=== PATIENT | female | born 1980 | race African-American/Black ===

== ENCOUNTER 2016-03-14 15:09 | Emergency (ER) | payer OTHER ==
--- NOTE | 2016-03-14 15:26 | ER Document Report ---
ED Respiratory Problem - General Mode of Arrival: Medic Information source: Patient, Emergency Med Personnel TRAVEL OUTSIDE OF THE [place] IN LAST 30 DAYS: No - HPI Patient complains to provider of: Short of breath Onset: Just prior to arrival Context: Hx COPD At home treatment: CPAP Associated symptoms: Other - see above <BRANDIN MIX - Last Filed: 03/14/16 16:47> <SRAVAN ESPINOSA - Last Filed: 03/14/16 19:55> - General Stated Complaint: BREATHING PROBLEMS Notes: 35 year old female with history of COPD, dyslipidemia, and hypertension presents to the ED via EMS after experiencing respiratory distress just prior to arrival. Patient was on a BiPAP machine upon examination and states that it is helping her breath better. EMS reports that they did not give the patient any breathing treatments because of her left arm swelling and bilateral pitting edema. EMS reports that there were no lung sounds bilaterally upon examination. Patient reports that she is supposed to be on a CPAP machine at night, but states that she doesn't use it because it is too big. Patient is currently on [place], Albuterol, Proair, Duoneb, Lisinopril, and Pravastatin. (BRANDIN MIX) - Related Data Allergies/Adverse Reactions: iodine [Iodine] Allergy (Verified 02/27/14 17:53) Shellfish * [Shellfish] Allergy (Verified 02/27/14 17:53) Past Medical History - General Information source: Patient - Social History Smoking Status: Unknown if Ever Smoked Family History: Reviewed & Not Pertinent - Past Medical History Cardiac Medical History: Reports: Hx Hypercholesterolemia, Hx Hypertension Pulmonary Medical History: Reports: Hx COPD Neurological Medical History: Reports: Hx Migraine Endocrine Medical History: Reports: Hx Diabetes Mellitus Type 2 Psychiatric Medical History: Reports: Hx Bipolar Disorder - Immunizations Hx Diphtheria, Pertussis, Tetanus Vaccination: Yes <BRANDIN MIX - Last Filed: 03/14/16 16:47> Review of Systems - Review of Systems Constitutional: No symptoms reported EENT: No symptoms reported Cardiovascular: No symptoms reported Respiratory: See HPI, Short of breath Gastrointestinal: No symptoms reported Genitourinary: No symptoms reported Female Genitourinary: No symptoms reported Musculoskeletal: No symptoms reported Skin: No symptoms reported Hematologic/Lymphatic: No symptoms reported Neurological/Psychological: No symptoms reported <BRANDIN MIX - Last Filed: 03/14/16 16:47> Physical Exam - General General appearance: Alert In distress: None - HEENT Head: Normocephalic, Atraumatic Eyes: Normal Extraocular movements intact: Yes Pupils: PERRL - Respiratory Respiratory status: No respiratory distress, Other - Patient is 100% on BiPAP Breath sounds: Normal. No: Wheezing - Cardiovascular Rhythm: Regular Heart sounds: Normal auscultation - Abdominal Inspection: Morbidly Obese. No: Normal - Back Back: Normal - Extremities General upper extremity: Normal inspection, Normal ROM. No: Edema General lower extremity: Normal inspection, Normal ROM. No: Edema - Neurological Neuro grossly intact: Yes - Psychological Associated symptoms: Normal affect, Normal mood - Skin Skin Temperature: Warm Skin Moisture: Dry Skin Color: Normal <BRANDIN MIX - Last Filed: 03/14/16 16:47> Course - Laboratory Result Diagrams: 03/14/16 15:30 03/14/16 15:30 <BRANDIN MIX - Last Filed: 03/14/16 16:47> - Laboratory Result Diagrams: 03/14/16 15:30 03/14/16 15:30 - Diagnostic Test Radiology reviewed: Image reviewed, Reports reviewed - Stable cardiomegaly, no infiltrates, no pulmonary vascular congestion or heart failure. - EKG Interpretation by Me EKG shows normal: Sinus rhythm, [place], Intervals, QRS Complexes, ST-T Waves Rate: Normal - 77 Rhythm: NSR <SRAVAN ESPINOSA - Last Filed: 03/14/16 19:55> - Re-evaluation Re-evalutation: 03/14/16 19:51 Patient was taken off of BiPAP after a mostly negative workup. She was allowed to walk up and down the hallway and maintain an oxygen saturation of 94% during the process. She'll be discharged home to continue her regular medications, follow up with her doctor to get a better fitting C Pap mask that she will use. (SRAVAN ESPINOSA) - Vital Signs Vital signs: Temp Pulse Resp BP Pulse Ox 97.9 F 85 27 H 148/92 H 100 03/14/16 15:10 03/14/16 15:10 03/14/16 15:40 03/14/16 16:21 03/14/16 16:21 (SRAVAN ESPINOSA) - Laboratory Laboratory results interpreted by me: 03/14/16 03/14/16 03/14/16 15:30 15:30 15:30 RBC 5.38 H Hgb 8.5 L Hct 29.6 L MCV 55 L MCH 15.8 L MCHC 28.7 L RDW 20.2 H Plt Count 629 H Hemoglobin A1c % 7.8 H Creatine Kinase 465 H Total Protein 8.9 H Urine Protein 03/14/16 17:55 RBC Hgb Hct MCV MCH MCHC RDW Plt Count Hemoglobin A1c % Creatine Kinase Total Protein Urine Protein 100 H (SRAVAN ESPINOSA) Discharge <BRANDIN MIX - Last Filed: 03/14/16 16:47> <SRAVAN ESPINOSA - Last Filed: 03/14/16 19:55> - Discharge Clinical Impression: Shortness of breath COPD (chronic obstructive pulmonary disease) Qualifiers: COPD type: unspecified COPD Qualified Code(s): J44.9 - Chronic obstructive pulmonary disease, unspecified Condition: Stable Disposition: HOME, SELF-CARE Additional Instructions: Your chest x-ray, EKG, and lab work were all unremarkable. When the BiPAP was removed and you were allowed to walk the hallways, your oxygen saturations stayed in the 94% range. Continue your regular medications when you get home. Follow-up with your doctor to get a better fitting C Pap mask so that you can use it as prescribed. RETURN TO THE EMERGENCY ROOM IF ANY NEW OR WORSENING SYMPTOMS. Scribe Attestation: 03/14/16 19:55 I personally performed the services described in the documentation, reviewed and edited the documentation which was dictated to the scribe in my presence, and it accurately records my words and actions. (SRAVAN ESPINOSA) Scribe Documentation - Scribe Written by Moiibe:: Tonny Martinez, 03/14/2016 16:49 acting as scribe for :: Reena <BRANDIN MIX - Last Filed: 03/14/16 16:47>
[2016-03-14] MEDS ORDERED: PREDNISONE 20 MG TABLET PO ONE (15:30)
[2016-03-14 15:52] LABS: HEMATOCRIT 29.6 % (36.0-47.0); HEMOGLOBIN 8.5 g/dL (12.0-15.5); MEAN CORPUSCULAR HEMOGLOBIN 15.8 pg (27.0-33.4); MEAN CORPUSCULAR HGB CONC 28.7 g/dL (32.0-36.0); RED BLOOD COUNT 5.38 10^6/uL (3.72-5.28); RED CELL DISTRIBUTION WIDTH 20.2 % (11.5-14.0); WHITE BLOOD COUNT 10.5 10^3/uL (4.0-10.5)
[2016-03-14 16:04] LABS: ALANINE AMINOTRANSFERASE 36 U/L (9-52); ALBUMIN 4.2 g/dL (3.5-5.0); ALKALINE PHOSPHATASE 106 U/L (38-126); ANION GAP 12 (5-19); ASPARTATE AMINO TRANSFERASE 31 U/L (14-36); BILIRUBIN,TOTAL 0.5 mg/dL (0.2-1.3); BLOOD UREA NITROGEN 14 mg/dL (7-20); CARBON DIOXIDE 29 mmol/L (22-30); CHLORIDE 102 mmol/L (98-107); CREATINE KINASE 465 U/L (30-135); CREATININE RESULT 0.85 mg/dL (0.52-1.25); GLUCOSE 100 mg/dL (75-110); POTASSIUM 4.2 mmol/L (3.6-5.0); SODIUM 143.1 mmol/L (137-145); TOTAL PROTEIN 8.9 g/dL (6.3-8.2)
[2016-03-14 16:06] LABS: HGB HCT DIFFERENCE -4.1
[2016-03-14 16:11] LABS: BASOPHILS % (MANUAL) 1 % (0-2); EOSINOPHILS % (MANUAL) 3 % (0-6); LYMPHOCYTES % (MANUAL) 41 % (13-45); TOTAL CELLS COUNTED 100
[2016-03-14 16:12] LABS: ANISOCYTOSIS 2+; HYPOCHROMASIA 3+; MICROCYTOSIS 3+; OVALOCYTES SLIGHT; POIKILOCYTOSIS SLIGHT; ROULEAUX SLIGHT; TARGET CELLS SLIGHT
[2016-03-14] MEDS ORDERED: IPRATROPIUM/ALBUTEROL 0.5-2.5 MG/3 ML AMPUL NEB ONE (16:12)
[2016-03-14 16:13] LABS: MEAN CORPUSCULAR VOLUME 55 fl (80-97)
[2016-03-14 16:18] LABS: CREATINE KINASE MB 1.67 ng/mL (<4.55); TROPONIN I 0.014 ng/mL
[2016-03-14] MEDS ORDERED: HYDROCODONE/ACETAMINOPHEN 5-325 MG TABLET PO ONE (17:48)
[2016-03-14 18:25] LABS: APPEARANCE,URINE SLIGHTLY-CLOUDY; BILIRUBIN,URINE NEGATIVE (NEGATIVE); GLUCOSE, URINE NEGATIVE (NEGATIVE); KETONES,URINE NEGATIVE (NEGATIVE); LEUKOCYTE ESTERASE,URINE NEGATIVE (NEGATIVE); NITRITE,URINE NEGATIVE (NEGATIVE); PROTEIN,URINE 100 mg/dL (NEGATIVE); URINE SPECIFIC GRAVITY 1.021; UROBILINOGEN,URINE NEGATIVE mg/dL (<2.0)
[2016-03-14 19:57] VITALS: BP 161/90
--- NOTE | 2016-03-14 21:13 | EKG REPORT ---
SEVERITY:- NORMAL ECG - SINUS RHYTHM : Confirmed by: Yan Jacob MD 14-Mar-2016 21:13:09
== END 2016-03-14 20:03 | disposition home or self-care (01) ==
LOC: ER 15:09
DX: J44.9 Chronic obstructive pulmonary disease, unspecified (principal); I10 Essential (primary) hypertension; R60.9 Edema, unspecified; M79.89 Other specified soft tissue disorders; F31.9 Bipolar disorder, unspecified; E78.00 Pure hypercholesterolemia, unspecified; E11.9 Type 2 diabetes mellitus without complications; Z79.899 Other long term (current) drug therapy; Z91.013 Allergy to seafood; R06.02 Shortness of breath; I51.7 Cardiomegaly
CPT/HCPCS: 93005; 94640; 99285; 36415; 87040; 82553; 82550; 83735; 84703; 85025; 80053; 81001; 84484; 83036; 85379; 71010; 93010; 94660; J7512; J7620

== ENCOUNTER 2016-05-20 22:23 | Emergency (ER) | payer OTHER ==
[2016-05-21] MEDS ORDERED: METHYLPREDNISOLONE INJ 125 MG/2 ML SDV IV ONE (00:29)
[2016-05-21] MEDS ORDERED: IPRATROPIUM/ALBUTEROL 0.5-2.5 MG/3 ML AMPUL NEB ONE (00:29)
[2016-05-21] MEDS ORDERED: MAGNESIUM SULFATE/D5W 1 GM/100 ML RTUPB IV ONE ×2 (00:29)
[2016-05-21] MEDS ORDERED: ALBUTEROL SULFATE 0.083% NEB 2.5 MG/3 ML AMPUL NEB ONE (00:29)
--- NOTE | 2016-05-21 00:32 | ER Document Report ---
ED Respiratory Problem - General Chief Complaint: Breathing Difficulty Stated Complaint: BREATHING DIFFICULTY Time seen by provider: 00:30 Mode of Arrival: Ambulatory Information source: Patient TRAVEL OUTSIDE OF THE [place] IN LAST 30 DAYS: No - HPI Patient complains to provider of: COPD, Cough, Short of breath Onset: This afternoon Duration: Worse/persistent Quality of pain: No pain Context: Hx COPD Chest pain/discomfort: Tightness Cough: Productive Sputum amount: Small Sputum color: Green, Yellow Sputum consistency: Mucoid At home treatment: Bronchodilators, Oral steroids Associated symptoms: Congestion, Cough, Difficulty breathing, Extertional dyspnea, Short of breath, Wheezing Similar symptoms previously: Yes Recently seen / treated by doctor: Yes Notes: Patient is a 36-year-old female presenting to the emergency room complaining of going on throughout the day today, she reports a cough productive of yellowish and greenish phlegm, denies fever, patient reports a history of COPD, she was seen at urgent care last week and diagnosed with influenza, was placed on a Z- Ashutosh and Tamiflu as well as oral steroids, which she completed treatment, she is a former smoker, reports multiple sick contacts at work recently, denies chest pain, no calf pain or tenderness - Related Data Allergies/Adverse Reactions: iodine [Iodine] Allergy (Verified 02/27/14 17:53) Shellfish * [Shellfish] Allergy (Verified 02/27/14 17:53) Past Medical History - General Information source: Patient - Social History Smoking Status: Former Smoker Chew tobacco use (# tins/day): No Frequency of alcohol use: None Drug Abuse: None Family History: Reviewed & Not Pertinent Patient has suicidal ideation: No Patient has homicidal ideation: No - Past Medical History Cardiac Medical History: Reports: Hx Hypercholesterolemia, Hx Hypertension Pulmonary Medical History: Reports: Hx Asthma, Hx COPD Neurological Medical History: Reports: Hx Migraine Endocrine Medical History: Reports: Hx Diabetes Mellitus Type 2 Renal/ Medical History: Denies: Hx Peritoneal Dialysis Psychiatric Medical History: Reports: Hx Bipolar Disorder - Immunizations Hx Diphtheria, Pertussis, Tetanus Vaccination: Yes Review of Systems - Review of Systems Constitutional: No symptoms reported EENT: No symptoms reported Cardiovascular: No symptoms reported Respiratory: See HPI Gastrointestinal: No symptoms reported Genitourinary: No symptoms reported Female Genitourinary: No symptoms reported Musculoskeletal: No symptoms reported Skin: No symptoms reported Hematologic/Lymphatic: No symptoms reported Neurological/Psychological: No symptoms reported -: Yes All other systems reviewed and negative Physical Exam - Vital signs Vitals: Temp Pulse Resp BP Pulse Ox 98.0 F 110 H 28 H 180/87 H 96 05/20/16 22:30 05/20/16 22:30 05/20/16 22:30 05/20/16 22:30 05/20/16 22:30 Interpretation: Hypertensive, Tachycardic, Tachypneic - General General appearance: Alert In distress: Mild - HEENT Head: Normocephalic, Atraumatic Eyes: Normal Conjunctiva: Normal Extraocular movements intact: Yes Eyelashes: Normal Pupils: PERRL - Respiratory Respiratory status: Tachypnea Chest status: Nontender Breath sounds: Decreased air movement, Nonproductive cough, Wheezing Chest palpation: Normal - Cardiovascular Rhythm: Regular, Tachycardia Heart sounds: Normal auscultation Murmur: No - Abdominal Inspection: Morbidly Obese Distension: No distension Bowel sounds: Normal Tenderness: Nontender Organomegaly: No organomegaly - Back Back: Normal, Nontender - Extremities General upper extremity: Normal inspection, Nontender, Normal color, Normal ROM , Normal temperature General lower extremity: Normal inspection, Nontender, Normal color, Normal ROM , Normal temperature, Normal weight bearing. No: Jadiel's sign - Neurological Neuro grossly intact: Yes Cognition: Normal Orientation: AAOx4 [place] Coma Scale Eye Opening: Spontaneous [place] Coma Scale Verbal: Oriented [place] Coma Scale Motor: Obeys Commands [place]ila Coma Scale Total: 15 Speech: Normal Motor strength normal: LUE, RUE, LLE, RLE Sensory: Normal - Psychological Associated symptoms: Normal affect, Normal mood - Skin Skin Temperature: Warm Skin Moisture: Dry Skin Color: Normal Course - Re-evaluation Re-evalutation: 05/21/16 02:41 Patient reports feeling much better after breathing treatments, site Medrol and IV magnesium, lab and imaging findings were discussed with her at bedside including her anemia, patient will be discharged with prescriptions for nebulizer treatments and inhaler, as well as steroids for a few days, she was advised to follow-up with her primary care provider or return if symptoms worsen , patient acknowledges understanding of plan - Vital Signs Vital signs: Temp Pulse Resp BP Pulse Ox 98.0 F 110 H 17 122/95 H 97 05/20/16 22:30 05/20/16 22:30 05/21/16 02:33 05/21/16 02:33 05/21/16 02:33 - Laboratory Result Diagrams: 05/21/16 01:20 05/21/16 01:20 Laboratory results interpreted by me: 05/21/16 05/21/16 01:20 01:20 Hgb 8.1 L Hct 28.0 L MCV 55 L MCH 15.7 L MCHC 28.8 L RDW 21.1 H Plt Count 524 H Glucose 201 H - Diagnostic Test Radiology reviewed: Image reviewed, Reports reviewed - EKG Interpretation by Me EKG shows normal: Sinus rhythm Rate: Normal Rhythm: NSR When compared to previous EKG there are: No significant change Discharge - Discharge Clinical Impression: Viral upper respiratory illness, COPD exacerbation Anemia Qualifiers: Anemia type: unspecified type Qualified Code(s): D64.9 - Anemia, unspecified Condition: Stable Disposition: HOME, SELF-CARE Instructions: Upper Respiratory Illness ([facility]), Viral Syndrome ([facility]), Chronic Obstructive Lung Disease ([facility]) Additional Instructions: Follow up with your primary care provider in one to 2 days. Return to the emergency room immediately if symptoms worsen or any additional concerns. Prescriptions: Albuterol Sulfate [Proair HFA Inhalation Aerosol 8.5 gm MDI] 1 puff IH Q4 PRN # 1 mdi PRN Reason: Albuterol Sulfate [Albuterol Sulfate 2.5mg/3 mL] 1 vial IH Q4 PRN #30 vial PRN Reason: Prednisone 40 mg PO DAILY #8 tablet
[2016-05-21 01:48] LABS: ALANINE AMINOTRANSFERASE 27 U/L (9-52); ALBUMIN 3.9 g/dL (3.5-5.0); ALKALINE PHOSPHATASE 107 U/L (38-126); ANION GAP 13 (5-19); ASPARTATE AMINO TRANSFERASE 21 U/L (14-36); BILIRUBIN,TOTAL 0.4 mg/dL (0.2-1.3); BLOOD UREA NITROGEN 17 mg/dL (7-20); CALCIUM 9.5 mg/dL (8.4-10.2); CARBON DIOXIDE 25 mmol/L (22-30); CHLORIDE 101 mmol/L (98-107); CREATININE RESULT 0.74 mg/dL (0.52-1.25); GLUCOSE 201 mg/dL (75-110); POTASSIUM 4.8 mmol/L (3.6-5.0)
[2016-05-21 02:10] LABS: ABSOLUTE MONOCYTES (AUTO) 0.5 10^3/uL (0.1-1.4); BASOPHILS % (AUTO) 0.4 % (0-2); EOSINOPHILS % (AUTO) 0.3 % (0-6); HEMOGLOBIN 8.1 g/dL (12.0-15.5); HGB HCT DIFFERENCE -3.7; LYMPHOCYTES % (AUTO) 20.9 % (13-45); MEAN CORPUSCULAR HEMOGLOBIN 15.7 pg (27.0-33.4); MEAN CORPUSCULAR HGB CONC 28.8 g/dL (32.0-36.0); RED BLOOD COUNT 5.12 10^6/uL (3.72-5.28); RED CELL DISTRIBUTION WIDTH 21.1 % (11.5-14.0); SEGMENTED NEUTROPHILS % (AUTO) 73.4 % (42-78); WHITE BLOOD COUNT 9.5 10^3/uL (4.0-10.5)
[2016-05-21 02:16] LABS: MEAN CORPUSCULAR VOLUME 55 fl (80-97)
[2016-05-21 02:24] LABS: ANISOCYTOSIS 3+; HYPOCHROMASIA 3+; MICROCYTOSIS 3+; OVALOCYTES 1+; POIKILOCYTOSIS 2+; POLYCHROMASIA 1+; TARGET CELLS 1+; TEAR DROP CELLS SLIGHT
[2016-05-21 04:30] VITALS: BP 124/88
[2016-05-21 09:25] LABS: PATH REVIEW PATHOLOGIST REVIEWED
--- NOTE | 2016-05-21 19:33 | EKG REPORT ---
SEVERITY:- BORDERLINE ECG - SINUS RHYTHM BORDERLINE T ABNORMALITIES, ANT-LAT LEADS : Confirmed by: Katelyn Lozano 21-May-2016 19:32:36
== END 2016-05-21 04:20 | disposition home or self-care (01) ==
LOC: ER 22:23
DX: J44.1 Chronic obstructive pulmonary disease with (acute) exacerbation (principal); J06.9 Acute upper respiratory infection, unspecified; B97.89 Other viral agents as the cause of diseases classified elsewhere; D64.9 Anemia, unspecified; J45.909 Unspecified asthma, uncomplicated; R05 Cough; R06.02 Shortness of breath; R00.0 Tachycardia, unspecified; R07.89 Other chest pain; I10 Essential (primary) hypertension; E11.9 Type 2 diabetes mellitus without complications; Z87.891 Personal history of nicotine dependence; Z91.013 Allergy to seafood
CPT/HCPCS: 93005; 94640; 99285; 96375; 96365; 96366; 36415; 84703; 85025; 80053; 71020; 93010; J2930; J3475; J7620

== ENCOUNTER 2016-06-29 13:30 | Emergency (ER) | payer OTHER ==
--- NOTE | 2016-06-29 13:53 | ER Document Report ---
ED Medical Screen (RME) - General Chief Complaint: Shortness Of Breath Stated Complaint: DIZZINESS Time seen by provider: 13:51 Mode of Arrival: Wheelchair Information source: Patient TRAVEL OUTSIDE OF THE [place] IN LAST 30 DAYS: No - HPI Patient complains to provider of: shortness of breath, generalized fatigue and weakness,pale Onset: Last week Onset/Duration: Gradual, Persistent, Worse Quality of pain: No pain Associated Symptoms: Dizzy/lightheaded, Shortness of breath, Weakness Exacerbated by: Denies Relieved by: Denies Similar symptoms previously: Yes Recently seen / treated by doctor: Yes Notes: 06/29/16 13:52 Patient is a 36-year-old female who presents to the emergency room complaining of shortness of breath with generalized weakness and fatigue, she is a history of COPD as well as iron deficiency anemia which has required blood transfusions in the past, she reports that she had outpatient labs performed approximately one week ago and was told that her hemoglobin is 7.7 patient denies any active bleeding - Related Data Allergies/Adverse Reactions: iodine [Iodine] Allergy (Verified 06/29/16 13:50) Shellfish * [Shellfish] Allergy (Verified 06/29/16 13:50) Past Medical History - Social History Family history: CAD, Malignancy - breast, lung, Other - emphysema - Past Medical History Cardiac Medical History: Reports: Hx Hypercholesterolemia, Hx Hypertension Pulmonary Medical History: Reports: Hx Asthma, Hx COPD Neurological Medical History: Reports: Hx Migraine Endocrine Medical History: Reports: Hx Diabetes Mellitus Type 2 Renal/ Medical History: Denies: Hx Peritoneal Dialysis Psychiatric Medical History: Reports: Hx Bipolar Disorder - Immunizations Hx Diphtheria, Pertussis, Tetanus Vaccination: Yes Physical Exam - Vital signs Vitals: Temp Pulse Resp BP Pulse Ox 98.6 F 94 16 132/79 H 97 06/29/16 13:39 06/29/16 13:39 06/29/16 13:39 06/29/16 13:39 06/29/16 13:39 Course - Vital Signs Vital signs: Temp Pulse Resp BP Pulse Ox 98.6 F 94 16 132/79 H 97 06/29/16 13:39 06/29/16 13:39 06/29/16 13:39 06/29/16 13:39 06/29/16 13:39
[2016-06-29 14:25] LABS: ABSOLUTE BASOPHILS # (AUTO) 0.1 10^3/uL (0.0-0.2); ABSOLUTE EOSINOPHILS # (AUTO) 0.2 10^3/uL (0.0-0.6); ABSOLUTE LYMPHOCYTES (AUTO) 4.5 10^3/uL (0.5-4.7); ABSOLUTE MONOCYTES (AUTO) 0.8 10^3/uL (0.1-1.4); ABSOLUTE NEUT (AUTO) 5.8 10^3/uL (1.7-8.2); BASOPHILS % (AUTO) 0.5 % (0-2); EOSINOPHILS % (AUTO) 1.7 % (0-6); HEMATOCRIT 28.5 % (36.0-47.0); HEMOGLOBIN 8.2 g/dL (12.0-15.5); HGB HCT DIFFERENCE -3.9; MEAN CORPUSCULAR HEMOGLOBIN 16.3 pg (27.0-33.4); MONOCYTES % (AUTO) 6.8 % (3-13); RED BLOOD COUNT 5.05 10^6/uL (3.72-5.28); WHITE BLOOD COUNT 11.3 10^3/uL (4.0-10.5)
--- NOTE | 2016-06-29 14:26 | ER Document Report ---
ED Respiratory Problem - General Chief Complaint: Shortness Of Breath Stated Complaint: DIZZINESS Mode of Arrival: Wheelchair Notes: Patient is a 36-year-old female, past medical history iron deficiency anemia, COPD, presents with increasing lightheadedness and mild shortness of breath. She is scheduled for iron infusions as an outpatient, but has required preauthorization and this has not been completed yet. Her Supervisor [employer] is Dr. Wise. She has required blood transfusions in the past for her anemia. He denies vaginal bleeding, cough, fevers, nausea, vomiting, chest pain, leg swelling, hemoptysis or rash. TRAVEL OUTSIDE OF THE [place] IN LAST 30 DAYS: No - Related Data Allergies/Adverse Reactions: iodine [Iodine] Allergy (Verified 06/29/16 13:50) Shellfish * [Shellfish] Allergy (Verified 06/29/16 13:50) Past Medical History - General Information source: Patient - Social History Smoking Status: Never Smoker Family History: Reviewed & Not Pertinent Patient has suicidal ideation: No Patient has homicidal ideation: No - Past Medical History Cardiac Medical History: Reports: Hx Hypercholesterolemia, Hx Hypertension Pulmonary Medical History: Reports: Hx Asthma, Hx COPD Neurological Medical History: Reports: Hx Migraine Endocrine Medical History: Reports: Hx Diabetes Mellitus Type 2 Renal/ Medical History: Denies: Hx Peritoneal Dialysis Psychiatric Medical History: Reports: Hx Bipolar Disorder - Immunizations Hx Diphtheria, Pertussis, Tetanus Vaccination: Yes Review of Systems - Review of Systems Notes: REVIEW OF SYSTEMS: CONSTITUTIONAL: -fevers, -chills EENT: -eye pain, -difficulty swallowing, -nasal congestion CARDIOVASCULAR:-chest pain, -syncope. RESPIRATORY: -cough, +SOB GASTROINTESTINAL: -abdominal pain, -nausea, -vomiting, -diarrhea GENITOURINARY: -dysuria, -hematuria MUSCULOSKELETAL: -back pain, -neck pain SKIN: -rash or skin lesions. HEMATOLOGIC: -easy bruising or bleeding. LYMPHATIC: -swollen, enlarged glands. NEUROLOGICAL: -altered mental status or loss of consciousness, -headache, - neurologic symptoms PSYCHIATRIC: -anxiety, -depression. ALL OTHER SYSTEMS REVIEWED AND NEGATIVE. Physical Exam - Vital signs Vitals: Temp Pulse Resp BP Pulse Ox 98.6 F 94 16 132/79 H 97 06/29/16 13:39 06/29/16 13:39 06/29/16 13:39 06/29/16 13:39 06/29/16 13:39 - Notes Notes: PHYSICAL EXAMINATION: GENERAL: Well-appearing, well-nourished and in no acute distress. HEAD: Atraumatic, normocephalic. EYES: Pupils equal round and reactive to light, extraocular movements intact, sclera anicteric, conjunctiva are pale ENT: nares patent, oropharynx clear without exudates. Moist mucous membranes. NECK: Normal range of motion, supple without lymphadenopathy LUNGS: Breath sounds clear to auscultation bilaterally and equal. No wheezes rales or rhonchi. HEART: Regular rate and rhythm without murmurs ABDOMEN: Soft, nontender, normoactive bowel sounds. No guarding, no rebound. No masses appreciated. EXTREMITIES: Normal range of motion, no pitting or edema. No cyanosis. NEUROLOGICAL: Cranial nerves grossly intact. Normal speech, normal gait. Normal sensory, motor, and reflex exams. PSYCH: Normal mood, normal affect. SKIN: Warm, Dry, normal turgor, no rashes or lesions noted. Course - Re-evaluation Re-evalutation: 06/29/16 15:36 Pt with symptomatic anemia causing dyspnea on exertion. Spoke to her professional sports scout Dr. Whitten and he recommends 1 unit PRBCs and following up for iron transfusions this week. PERC negative and CXR not showing infiltrate. No wheezing to suggest COPD exacerbation. - Vital Signs Vital signs: Temp Pulse Resp BP Pulse Ox 98.2 F 84 22 H 156/100 H 99 06/29/16 16:40 06/29/16 16:40 06/29/16 16:40 06/29/16 16:40 06/29/16 16:40 - Laboratory Result Diagrams: 06/29/16 14:00 06/29/16 14:00 Laboratory results interpreted by me: 06/29/16 06/29/16 06/29/16 13:55 14:00 14:00 WBC 11.3 H Hgb 8.2 L Hct 28.5 L MCV 56 L MCH 16.3 L MCHC 29.0 L RDW 21.0 H Plt Count 628 H Glucose 115 H Ur Leukocyte Esterase TRACE H Crossmatch 06/29/16 14:00 WBC Hgb Hct MCV MCH MCHC RDW Plt Count Glucose Ur Leukocyte Esterase Crossmatch See Detail - EKG Interpretation by Me EKG shows normal: Sinus rhythm, [place], Intervals, QRS Complexes, ST-T Waves Discharge - Discharge Clinical Impression: Symptomatic anemia Condition: Stable Disposition: HOME, SELF-CARE Additional Instructions: Anemia You have been found to have a significant anemia (a lower than normal amount of red blood cells). Anemia can be due to iron deficiency, vitamin deficiency, abnormal bleeding, or internal diseases. Usually, further tests are necessary to find the exact cause of the anemia. The most common cause of anemia is iron deficiency, often brought on by blood loss. This can be treated with iron supplements. If this appears to be the most likely cause, iron tablets may be prescribed even before all tests are complete. Contact the doctor at once if you note black or tarry-looking stools, bloody vomiting, shortness of breath, chest pain, or faintness. Call your professional sports scout tomorrow to have your iron infusions scheduled this week. Return to the ER if he notes any worsening shortness of breath or any other concerns. Referrals: JERI VENCES FNP [Primary Care Provider] - Follow up as needed GREGORIO WHITTEN MD [ACTIVE STAFF] - Follow up as needed
[2016-06-29 14:44] LABS: APPEARANCE,URINE SLIGHTLY-CLOUDY; BILIRUBIN,URINE NEGATIVE (NEGATIVE); GLUCOSE, URINE NEGATIVE (NEGATIVE); KETONES,URINE NEGATIVE (NEGATIVE); LEUKOCYTE ESTERASE,URINE TRACE (NEGATIVE); NITRITE,URINE NEGATIVE (NEGATIVE); PROTEIN,URINE NEGATIVE (NEGATIVE); URINE SPECIFIC GRAVITY 1.011; UROBILINOGEN,URINE NEGATIVE mg/dL (<2.0)
[2016-06-29 14:47] LABS: MEAN CORPUSCULAR VOLUME 56 fl (80-97)
[2016-06-29 14:48] LABS: ALANINE AMINOTRANSFERASE 31 U/L (9-52); ALBUMIN 4.4 g/dL (3.5-5.0); ALKALINE PHOSPHATASE 91 U/L (38-126); ANION GAP 13 (5-19); ANISOCYTOSIS 3+; ASPARTATE AMINO TRANSFERASE 29 U/L (14-36); BILIRUBIN,DIRECT 0.2 mg/dL (0.0-0.4); BILIRUBIN,TOTAL 0.4 mg/dL (0.2-1.3); BLOOD UREA NITROGEN 13 mg/dL (7-20); CARBON DIOXIDE 23 mmol/L (22-30); CHLORIDE 104 mmol/L (98-107); CREATININE RESULT 0.78 mg/dL (0.52-1.25); GLUCOSE 115 mg/dL (75-110); MICROCYTOSIS 4+; POTASSIUM 4.4 mmol/L (3.6-5.0); SODIUM 140.3 mmol/L (137-145); TOTAL PROTEIN 8.2 g/dL (6.3-8.2)
[2016-06-29 14:50] LABS: HYPOCHROMASIA 3+; OVALOCYTES 1+; POIKILOCYTOSIS 1+; POLYCHROMASIA 1+
[2016-06-29 14:51] LABS: TARGET CELLS 1+; TEAR DROP CELLS SLIGHT
[2016-06-29] MEDS ORDERED: NORMAL SALINE 250 ML IV PRN ×2 (15:34)
[2016-06-29] MEDS ORDERED: ACETAMINOPHEN 325 MG TABLET PO ONE (15:49)
[2016-06-29] MEDS ORDERED: KETOROLAC TROMETHAMINE INJ/PF 30 MG/1 ML SDV IV ONE (18:26)
[2016-06-29] MEDS ORDERED: METOCLOPRAMIDE HCL INJ/PF 10 MG/2 ML SDV IV ONE (18:27)
[2016-06-29] MEDS ORDERED: DIPHENHYDRAMINE HCL 50 MG/ML VIAL IV ONE (18:27)
[2016-06-29 19:04] VITALS: BP 151/78
--- NOTE | 2016-06-29 19:32 | EKG REPORT ---
SEVERITY:- ABNORMAL ECG - SINUS RHYTHM NONSPECIFIC T ABNORMALITIES, LATERAL LEADS : Confirmed by: Irma Loja MD 29-Jun-2016 19:31:12
== END 2016-06-29 19:04 | disposition home or self-care (01) ==
LOC: ER 13:30
DX: D50.9 Iron deficiency anemia, unspecified (principal); J44.9 Chronic obstructive pulmonary disease, unspecified; R42 Dizziness and giddiness; R06.02 Shortness of breath; I10 Essential (primary) hypertension; Z91.013 Allergy to seafood; E11.9 Type 2 diabetes mellitus without complications
CPT/HCPCS: 93005; 99285; 96374; 96375; 86900; 86901; 36415; 36430; 86850; 85025; 81025; 80053; 81001; 86920; 71020; 93010; P9016; J1200; J1885; J2765

== ENCOUNTER 2016-07-09 09:33 | Outpatient (CLI) | payer OTHER ==
[~2016-07-09 09:33] MED LIST: FERRIC CARBOXYMALTOSE 750 MG in NORMAL SALINE 250 ML IV PRN; NORMAL SALINE 250 ML IV PRN
[2016-07-09 10:32] VITALS: BP 160/84
== END 2016-07-09 10:32 | disposition home or self-care (01) ==
LOC: II 09:33 → 5TH 09:36 → II 10:32
PROVIDERS: ATTEND Internal Medicine
PROC: 3E033GC Introduction of Other Therapeutic Substance into Peripheral Vein, Percutaneous Approach (ICD-10-PCS; principal; 2016-07-09)
DX: D50.8 Other iron deficiency anemias (principal); K90.9 Intestinal malabsorption, unspecified
CPT/HCPCS: 96365; J7050; J1439

== ENCOUNTER 2016-07-16 13:09 | Outpatient (CLI) | payer OTHER ==
[2016-07-16 13:36] VITALS: BP 125/50
== END 2016-07-16 14:28 | disposition home or self-care (01) ==
LOC: II 13:09 → 5TH 13:36 → II 14:28
PROVIDERS: ATTEND Internal Medicine
PROC: 3E033GC Introduction of Other Therapeutic Substance into Peripheral Vein, Percutaneous Approach (ICD-10-PCS; principal; 2016-07-16)
DX: D50.8 Other iron deficiency anemias (principal); K90.9 Intestinal malabsorption, unspecified
CPT/HCPCS: 96365; J7050; J1439; 96367

== ENCOUNTER → 2016-07-21 | Outpatient (CLI) | payer OTHER ==
[~2016-07-21] MED LIST changes: +ALBUTEROL SULFATE 0.083% NEB 2.5 MG/3 ML AMPUL NEB ONE; -FERRIC CARBOXYMALTOSE 750 MG in NORMAL SALINE 250 ML IV PRN; -NORMAL SALINE 250 ML IV PRN
--- NOTE | 2016-07-23 11:55 | PULMONARY FUNCTION TEST ---
DATE OF SERVICE: 07/21/2016 THE VITAL CAPACITY IS MODERATELY DECREASED. THE EXPIRATORY FLOW RATES ARE MODERATELY DECREASED. THE FEV1/VC IS 72%, PREDICTED: 86% LUNG VOLUMES BY NITROGEN WASH OUT METHOD SHOW: TLC IS 70% OF PREDICTED RV IS 73% OF PREDICTED THE DLCO IS 17.1, 52% OF PREDICTED. THE RV/TLC RATIO IS 32% PREDICTED 31% AFTER BRONCHODILATOR, EXPIRATORY FLOW RATES SHOW NO SIGNIFICANT CHANGE. IMPRESSION: GOOD PATIENT EFFORT. MODERATE OBSTRUCTIVE DEFECT. DIFFUSING CAPACITY IS MODERATELY DECREASED. THE PREDICTED VALUE FOR FRC IS INCORRECT. CC: SLOAN MUNSON MD > KARIN
== END ==
LOC: RT 13:34
PROVIDERS: ATTEND Internal Medicine Pulmonary Disease
DX: J44.1 Chronic obstructive pulmonary disease with (acute) exacerbation (principal)
CPT/HCPCS: 94060; 94727; 94729

== ENCOUNTER 2016-11-08 11:20 | Emergency (ER) | payer OTHER ==
--- NOTE | 2016-11-08 11:46 | ER Document Report ---
ED Medical Screen (RME) - General Chief Complaint: Weakness Stated Complaint: WEAKNESS Time Seen by Provider: 11/08/16 11:43 Notes: Patient states that over the weekend she has developed some blurry vision. She has had trouble getting words out. She also states she has felt confused. She states she has had headaches. She states her blood sugars have been well controlled over the weekend. She denies missing any doses of her medications. No trauma. TRAVEL OUTSIDE OF THE [place] IN LAST 30 DAYS: No - Related Data Allergies/Adverse Reactions: iodine [Iodine] Allergy (Verified 11/08/16 11:26) Shellfish * [Shellfish] Allergy (Verified 11/08/16 11:26) Past Medical History - Social History Chew tobacco use (# tins/day): - 4 Frequency of alcohol use: None Drug Abuse: None Family history: CAD, Malignancy - breast, lung, Other - emphysema - Past Medical History Cardiac Medical History: Reports: Hx Hypercholesterolemia, Hx Hypertension Pulmonary Medical History: Reports: Hx Asthma, Hx COPD Neurological Medical History: Reports: Hx Migraine Endocrine Medical History: Reports: Hx Diabetes Mellitus Type 2 Renal/ Medical History: Denies: Hx Peritoneal Dialysis Psychiatric Medical History: Reports: Hx Bipolar Disorder - Immunizations Hx Diphtheria, Pertussis, Tetanus Vaccination: Yes Physical Exam - Vital signs Vitals: Temp Pulse Resp BP Pulse Ox 98.4 F 118 H 22 H 188/104 H 99 11/08/16 11:23 11/08/16 11:23 11/08/16 11:23 11/08/16 11:23 11/08/16 11:23 Course - Vital Signs Vital signs: Temp Pulse Resp BP Pulse Ox 98.4 F 118 H 22 H 188/104 H 99 11/08/16 11:23 11/08/16 11:23 11/08/16 11:23 11/08/16 11:23 11/08/16 11:23
[2016-11-08 12:14] LABS: ABSOLUTE LYMPHOCYTES (AUTO) 1.3 10^3/uL (0.5-4.7); ABSOLUTE MONOCYTES (AUTO) 0.2 10^3/uL (0.1-1.4); ABSOLUTE NEUT (AUTO) 6.6 10^3/uL (1.7-8.2); BASOPHILS % (AUTO) 0.5 % (0-2); EOSINOPHILS % (AUTO) 0.3 % (0-6); HEMATOCRIT 36.8 % (36.0-47.0); HEMOGLOBIN 11.4 g/dL (12.0-15.5); HGB HCT DIFFERENCE -2.6; MEAN CORPUSCULAR HEMOGLOBIN 20.8 pg (27.0-33.4); MEAN CORPUSCULAR VOLUME 67 fl (80-97); MONOCYTES % (AUTO) 2.8 % (3-13); RED BLOOD COUNT 5.47 10^6/uL (3.72-5.28); RED CELL DISTRIBUTION WIDTH 19.3 % (11.5-14.0); SEGMENTED NEUTROPHILS % (AUTO) 80.4 % (42-78); WHITE BLOOD COUNT 8.2 10^3/uL (4.0-10.5)
[2016-11-08 12:19] LABS: APPEARANCE,URINE CLOUDY; BILIRUBIN,URINE NEGATIVE (NEGATIVE); GLUCOSE, URINE NEGATIVE (NEGATIVE); KETONES,URINE NEGATIVE (NEGATIVE); LEUKOCYTE ESTERASE,URINE TRACE (NEGATIVE); NITRITE,URINE NEGATIVE (NEGATIVE); PROTEIN,URINE NEGATIVE (NEGATIVE); URINE SPECIFIC GRAVITY 1.025; UROBILINOGEN,URINE NEGATIVE mg/dL (<2.0)
[2016-11-08 12:35] LABS: ALANINE AMINOTRANSFERASE 41 U/L (9-52); ALBUMIN 4.4 g/dL (3.5-5.0); ALKALINE PHOSPHATASE 109 U/L (38-126); ANION GAP 16 (5-19); ASPARTATE AMINO TRANSFERASE 37 U/L (14-36); BILIRUBIN,DIRECT 0.4 mg/dL (0.0-0.4); BILIRUBIN,TOTAL 0.4 mg/dL (0.2-1.3); BLOOD UREA NITROGEN 9 mg/dL (7-20); CALCIUM 9.9 mg/dL (8.4-10.2); CARBON DIOXIDE 21 mmol/L (22-30); CHLORIDE 103 mmol/L (98-107); CREATININE RESULT 0.76 mg/dL (0.52-1.25); GLUCOSE 170 mg/dL (75-110); POTASSIUM 4.2 mmol/L (3.6-5.0); SODIUM 140.2 mmol/L (137-145); TOTAL PROTEIN 8.2 g/dL (6.3-8.2)
--- NOTE | 2016-11-08 13:16 | RADIOLOGY REPORT (SQ) ---
EXAM DESCRIPTION: CT HEAD WITHOUT COMPLETED DATE/TIME: 11/08/2016 1:08 pm REASON FOR STUDY: confusion/balderrama/blurry vision COMPARISON: 11/03/2015 TECHNIQUE: Axial images acquired through the brain without intravenous contrast. Images reviewed wi th bone, brain and subdural windows. Images stored on PACS. All CT scanners at this facility use dose modulation, iterative reconstruction, and/or weight based d osing when appropriate to reduce radiation dose to as low as reasonably achievable (ALARA). [facility]: Dose Right [facility]: CareDose [facility]: Dose Right [facility]: Teradose 4D [facility]: VisTracks RADIATION DOSE: Up-to-date CT equipment and radiation dose reduction techniques were employed. CTDIv ol: 63.8 mGy. DLP: 1034 mGy-cm. mGy. LIMITATIONS: None. FINDINGS: VENTRICLES: Normal size and contour. CEREBRUM: No masses. No hemorrhage. No midline shift. No evidence for acute infarction. Normal gra y/white matter differentiation. No areas of low density in the white matter. CEREBELLUM: No masses. No hemorrhage. No alteration of density. No evidence for acute infarction. EXTRAAXIAL SPACES: No fluid collections. No masses. ORBITS AND GLOBE: No intra- or extraconal masses. Normal contour of globe without masses. CALVARIUM: No fracture. PARANASAL SINUSES: No fluid or mucosal thickening. SOFT TISSUES: No mass or hematoma. OTHER: No other significant finding. IMPRESSION: NORMAL BRAIN CT WITHOUT CONTRAST. COMMENT: Quality ID # [id number]: Final reports with documentation of one or more dose reduction techniques (e.g., Automated exposure control, adjustment of the mA and/or kV according to patient size, use of iterative reconstruction technique) TECHNICAL DOCUMENTATION: JOB ID: [id number]- All Rights Reserved
[2016-11-08] MEDS ORDERED: NORMAL SALINE 1000 ML 1,000 ML IV ONE (13:35)
[2016-11-08] MEDS ORDERED: PROCHLORPERAZINE EDISYLATE INJ 10 MG/2 ML VIAL IV ONE (13:35)
--- NOTE | 2016-11-08 13:36 | ER Document Report ---
ED General - General Chief Complaint: Weakness Stated Complaint: WEAKNESS Time Seen by Provider: 11/08/16 11:43 Mode of Arrival: Ambulatory Information source: Patient Notes: Patient is a 36-year-old female who presents to the ER today for 1 year of "being shaky", a couple of months of memory issues, 2 years headache, having issues getting her "words out" and blurred vision. She admits to headaches during these episodes as well. She states that all of these symptoms can happen at different times and have been worked up by her primary care provider. She has not seen neurology and has no history of migraines but does "get headaches. " She says she feels like she's "becoming mentally retarded." TRAVEL OUTSIDE OF THE [place] IN LAST 30 DAYS: No - Related Data Allergies/Adverse Reactions: iodine [Iodine] Allergy (Verified 11/08/16 11:26) Shellfish * [Shellfish] Allergy (Verified 11/08/16 11:26) Past Medical History - General Information source: Patient - Social History Smoking Status: Current Every Day Smoker Chew tobacco use (# tins/day): - 4 Frequency of alcohol use: None Drug Abuse: None Family History: Reviewed & Not Pertinent - Past Medical History Cardiac Medical History: Reports: Hx Hypercholesterolemia, Hx Hypertension Pulmonary Medical History: Reports: Hx Asthma, Hx COPD Neurological Medical History: Reports: Hx Migraine Endocrine Medical History: Reports: Hx Diabetes Mellitus Type 2 Renal/ Medical History: Denies: Hx Peritoneal Dialysis Psychiatric Medical History: Reports: Hx Bipolar Disorder - Immunizations Hx Diphtheria, Pertussis, Tetanus Vaccination: Yes Review of Systems - Review of Systems Constitutional: No symptoms reported EENT: No symptoms reported Cardiovascular: No symptoms reported Respiratory: No symptoms reported Gastrointestinal: No symptoms reported Genitourinary: No symptoms reported Female Genitourinary: No symptoms reported Musculoskeletal: No symptoms reported Skin: No symptoms reported Hematologic/Lymphatic: No symptoms reported Neurological/Psychological: See HPI Physical Exam - Vital signs Vitals: Temp Pulse Resp BP Pulse Ox 98.4 F 118 H 22 H 188/104 H 99 11/08/16 11:23 11/08/16 11:23 11/08/16 11:23 11/08/16 11:23 11/08/16 11:23 - Notes Notes: PHYSICAL EXAMINATION: GENERAL: Well-appearing and in no acute distress. HEAD: Atraumatic, normocephalic. EYES: Pupils equal round and reactive to light, extraocular movements intact, sclera anicteric, conjunctiva are normal. ENT: ear canals without erythema or foreign body, TMs pearly baer with good bony landmarks, nares patent, oropharynx clear without exudates. Moist mucous membranes. NECK: Normal range of motion, supple without lymphadenopathy LUNGS: CTAB and equal. No wheezes rales or rhonchi. HEART: Regular rate and rhythm without murmurs EXTREMITIES: Normal range of motion, no pitting edema. No cyanosis. NEUROLOGICAL: Cranial nerves grossly intact. Normal sensory/motor exams. Good and equal strength bilaterally, Kernig and Brudzinski's signs negative, Romberg' s test normal, normal heel to chavira testing PSYCH: Normal mood, normal affect. SKIN: Warm, Dry, normal turgor, no rashes or lesions noted - HEENT Visual acuity- Right eye: 20/30 Visual acuity- Left eye: 20/50 Visual acuity- Both eyes: 20/25 Corrective lenses worn: Yes Course - Re-evaluation Re-evalutation: 11/08/16 14:44 Lab work is unremarkable today, CT of the head is negative for any acute pathology. Patient feels better after IV fluids and Compazine, her blood pressure did reduce on its own before any kind of intervention to 140/90 systolically. Patient should follow up with neurologist for her what seems to be chronic symptoms. 11/08/16 14:45 - Vital Signs Vital signs: Temp Pulse Resp BP Pulse Ox 98.4 F 109 H 16 147/94 H 97 11/08/16 11:23 11/08/16 13:45 11/08/16 13:45 11/08/16 13:45 11/08/16 13:45 - Laboratory Result Diagrams: 11/08/16 11:55 11/08/16 11:55 Laboratory results interpreted by me: 11/08/16 11/08/16 11/08/16 11:55 11:55 11:55 RBC 5.47 H Hgb 11.4 L MCV 67 L MCH 20.8 L MCHC 31.0 L RDW 19.3 H Plt Count 529 H Seg Neutrophils % 80.4 H Monocytes % 2.8 L Carbon Dioxide 21 L Glucose 170 H AST 37 H Urine Blood SMALL H Ur Leukocyte Esterase TRACE H Discharge - Discharge Clinical Impression: Shaky, Changes in vision Headache Qualifiers: Headache type: other headache syndrome Qualified Code(s): G44.89 - Other headache syndrome Condition: Stable Disposition: HOME, SELF-CARE Additional Instructions: Return immediately for any new or worsening symptoms. Follow up with neurologist and eye doctor, call tomorrow to make followup appointment. Forms: Elevated Blood Pressure Referrals: JERI VENCES FNP [Primary Care Provider] - Follow up as needed LIANA LINN MD [ACTIVE STAFF] - Follow up as needed CRISTHIAN LEVIN DO [ACTIVE STAFF] - Follow up as needed
[2016-11-08 15:11] VITALS: BP 124/73
== END 2016-11-08 15:08 | disposition home or self-care (01) ==
LOC: ER 11:20
DX: G44.89 Other headache syndrome (principal); H53.8 Other visual disturbances; R29.818 Other symptoms and signs involving the nervous system; F17.200 Nicotine dependence, unspecified, uncomplicated; I10 Essential (primary) hypertension; J44.9 Chronic obstructive pulmonary disease, unspecified; E11.9 Type 2 diabetes mellitus without complications; Z91.013 Allergy to seafood
CPT/HCPCS: 99285; 96374; 36415; 85025; 81025; 80053; 81001; 70450; J0780; J7030

== ENCOUNTER 2017-03-01 11:54 | Emergency (ER) | payer OTHER ==
--- NOTE | 2017-03-01 12:15 | ER Document Report ---
ED Medical Screen (RME) - General Chief Complaint: Shortness Of Breath Stated Complaint: SHORTNESS OF BREATH Time Seen by Provider: 03/01/17 12:13 Notes: Patient reports about 2 weeks of shortness of breath and chest pain intermittently. She states that she has had cough and congestion. She denies any history of heart failure or heart disease. She states that she has not taken her blood pressure medication in over a week. TRAVEL OUTSIDE OF THE [place] IN LAST 30 DAYS: No - Related Data Allergies/Adverse Reactions: iodine [Iodine] Allergy (Verified 03/01/17 11:54) Shellfish * [Shellfish] Allergy (Verified 03/01/17 11:54) Home Medications: Current Home Medications Fluticasone/Vilanterol [Breo Ellipta 200-25 Mcg INH] 1 each IH DAILY 03/01/17 [ History] Lisdexamfetamine Dimesylate [Vyvanse] 1 tab PO DAILY 03/01/17 [History] Losartan Potassium [Losartan Potassium] 1 tab PO DAILY 03/01/17 [History] Past Medical History - Social History Chew tobacco use (# tins/day): No Frequency of alcohol use: None Drug Abuse: None Family history: CAD, Malignancy - breast, lung, Other - emphysema - Past Medical History Cardiac Medical History: Reports: Hx Hypercholesterolemia, Hx Hypertension Pulmonary Medical History: Reports: Hx Asthma, Hx COPD Neurological Medical History: Reports: Hx Migraine Endocrine Medical History: Reports: Hx Diabetes Mellitus Type 2 Renal/ Medical History: Denies: Hx Peritoneal Dialysis Psychiatric Medical History: Reports: Hx Bipolar Disorder - Immunizations Hx Diphtheria, Pertussis, Tetanus Vaccination: Yes Physical Exam - Vital signs Vitals: Temp Pulse Resp BP Pulse Ox 98.7 F 102 H 18 166/118 H 98 03/01/17 11:59 03/01/17 11:59 03/01/17 11:59 03/01/17 11:59 03/01/17 11:59 Course - Vital Signs Vital signs: Temp Pulse Resp BP Pulse Ox 98.7 F 102 H 18 166/118 H 98 03/01/17 11:59 03/01/17 11:59 03/01/17 11:59 03/01/17 11:59 03/01/17 11:59
[2017-03-01 12:47] LABS: ABSOLUTE BASOPHILS # (AUTO) 0.1 10^3/uL (0.0-0.2); ABSOLUTE EOSINOPHILS # (AUTO) 0.2 10^3/uL (0.0-0.6); ABSOLUTE LYMPHOCYTES (AUTO) 2.4 10^3/uL (0.5-4.7); ABSOLUTE MONOCYTES (AUTO) 0.5 10^3/uL (0.1-1.4); ABSOLUTE NEUT (AUTO) 5.1 10^3/uL (1.7-8.2); BASOPHILS % (AUTO) 1.2 % (0-2); EOSINOPHILS % (AUTO) 2.9 % (0-6); HEMATOCRIT 35.3 % (36.0-47.0); HEMOGLOBIN 11.2 g/dL (12.0-15.5); HGB HCT DIFFERENCE -1.7; LYMPHOCYTES % (AUTO) 29.1 % (13-45); MEAN CORPUSCULAR HEMOGLOBIN 21.5 pg (27.0-33.4); MEAN CORPUSCULAR HGB CONC 31.8 g/dL (32.0-36.0); MEAN CORPUSCULAR VOLUME 68 fl (80-97); MONOCYTES % (AUTO) 5.7 % (3-13); RED BLOOD COUNT 5.21 10^6/uL (3.72-5.28); RED CELL DISTRIBUTION WIDTH 17.1 % (11.5-14.0); SEGMENTED NEUTROPHILS % (AUTO) 61.1 % (42-78); WHITE BLOOD COUNT 8.3 10^3/uL (4.0-10.5)
[2017-03-01] MEDS ORDERED: ALBUTEROL SULFATE 0.083% NEB 2.5 MG/3 ML AMPUL NEB ONE (12:47)
[2017-03-01] MEDS ORDERED: PREDNISONE 20 MG TABLET PO ONE (12:47)
--- NOTE | 2017-03-01 12:47 | ER Document Report ---
ED Respiratory Problem - General Chief Complaint: Shortness Of Breath Stated Complaint: SHORTNESS OF BREATH Time Seen by Provider: 03/01/17 12:13 Mode of Arrival: Ambulatory Information source: Patient Notes: 36 yo with hx copd c/o increased congestion, cough, wheeze this week. No fever. Left retrosternal chest pain with breathing in and out only. No n/v/d. No abd pain. Used nebulizer at home which helped some. Has already been for chest xray. TRAVEL OUTSIDE OF THE [place] IN LAST 30 DAYS: No - Related Data Allergies/Adverse Reactions: iodine [Iodine] Allergy (Verified 03/01/17 11:54) Shellfish * [Shellfish] Allergy (Verified 03/01/17 11:54) Home Medications: Current Home Medications Fluticasone/Vilanterol [Breo Ellipta 200-25 Mcg INH] 1 each IH DAILY 03/01/17 [ History] Lisdexamfetamine Dimesylate [Vyvanse] 1 tab PO DAILY 03/01/17 [History] Losartan Potassium [Losartan Potassium] 1 tab PO DAILY 03/01/17 [History] Past Medical History - General Information source: Patient - Social History Smoking Status: Former Smoker Chew tobacco use (# tins/day): No Frequency of alcohol use: None Drug Abuse: None Lives with: Spouse/Significant other Family History: Reviewed & Not Pertinent Patient has suicidal ideation: No Patient has homicidal ideation: No - Past Medical History Cardiac Medical History: Reports: Hx Hypercholesterolemia, Hx Hypertension Pulmonary Medical History: Reports: Hx Asthma, Hx COPD Neurological Medical History: Reports: Hx Migraine Endocrine Medical History: Reports: Hx Diabetes Mellitus Type 2 Renal/ Medical History: Denies: Hx Peritoneal Dialysis Psychiatric Medical History: Reports: Hx Bipolar Disorder Surgical Hx: Negative - Immunizations Hx Diphtheria, Pertussis, Tetanus Vaccination: Yes Review of Systems - Review of Systems Constitutional: No symptoms reported EENT: See HPI Cardiovascular: No symptoms reported Respiratory: See HPI Gastrointestinal: No symptoms reported Genitourinary: No symptoms reported Female Genitourinary: No symptoms reported Musculoskeletal: No symptoms reported Skin: No symptoms reported Hematologic/Lymphatic: No symptoms reported Neurological/Psychological: No symptoms reported Physical Exam - Vital signs Vitals: Temp Pulse Resp BP Pulse Ox 98.7 F 102 H 18 166/118 H 98 03/01/17 11:59 03/01/17 11:59 03/01/17 11:59 03/01/17 11:59 03/01/17 11:59 Interpretation: Normal - General General appearance: Appears well, Alert - HEENT Head: Normocephalic, Atraumatic Eyes: Normal Conjunctiva: Normal Pupils: PERRL Mucous membranes: Normal Pharynx: Erythema. No: Uvular edema Neck: Supple. No: Lymphadenopathy - Respiratory Respiratory status: No respiratory distress Chest status: Nontender Breath sounds: Decreased air movement, Wheezing - mild exp wheeze bilaterally Chest palpation: Normal - Cardiovascular Rhythm: Regular Heart sounds: Normal auscultation Murmur: No - Abdominal Inspection: Normal Distension: No distension Bowel sounds: Normal Tenderness: Nontender Organomegaly: No organomegaly - Back Back: Normal, Nontender - Extremities General upper extremity: Normal inspection, Nontender, Normal color, Normal ROM , Normal temperature General lower extremity: Normal inspection, Nontender, Normal color, Normal ROM , Normal temperature, Normal weight bearing. No: Jadiel's sign - Neurological Neuro grossly intact: Yes Cognition: Normal Orientation: AAOx4 [place] Coma Scale Eye Opening: Spontaneous [place] Coma Scale Verbal: Oriented [place] Coma Scale Motor: Obeys Commands [place] Coma Scale Total: 15 Speech: Normal Motor strength normal: LUE, RUE, LLE, RLE Sensory: Normal - Psychological Associated symptoms: Normal affect, Normal mood - Skin Skin Temperature: Warm Skin Moisture: Dry Skin Color: Normal Skin irregularity: negative: Rash Course - Re-evaluation Re-evalutation: 03/01/17 14:19 less wheeze on the left, CXR shows pulmonary vascular congestion, labs OK> pt still c/o insp and exp left retrosternal pleuritic chest pain, stating she needs something for pain, she thinks her breathing is better. 03/01/17 14:[address] valle, get d dimer 03/01/17 15:32 D-dimer is negative. 03/01/17 15:[address] valle, OK to go home - Vital Signs Vital signs: Temp Pulse Resp BP Pulse Ox 98.4 F 100 16 147/94 H 98 03/01/17 16:45 03/01/17 16:45 03/01/17 16:45 03/01/17 16:45 12/19/17 16:45 - Laboratory Result Diagrams: 03/01/17 12:25 03/01/17 12:25 Laboratory results interpreted by me: 03/01/17 03/01/17 12:25 12:25 Hgb 11.2 L Hct 35.3 L MCV 68 L MCH 21.5 L MCHC 31.8 L RDW 17.1 H Glucose 170 H Discharge - Discharge Clinical Impression: Wheezing, chest pain-pleuritic, hypertension COPD (chronic obstructive pulmonary disease) Qualifiers: COPD type: unspecified COPD Qualified Code(s): J44.9 - Chronic obstructive pulmonary disease, unspecified Obesity Qualifiers: Obesity type: unspecified obesity type Obesity classification: adult class 3 ( BMI >= 40) Serious obesity comorbidity presence: with serious comorbidity Body mass index: BMI 60.0-69.9 Qualified Code(s): E66.9 - Obesity, unspecified Diabetes Qualifiers: Diabetes mellitus type: type 2 Diabetes mellitus complication status: without complication Diabetes mellitus intermediate accountant insulin use: without intermediate accountant use Qualified Code(s): E11.9 - Type 2 diabetes mellitus without complications Condition: Good Disposition: HOME, SELF-CARE Instructions: Azithromycin ([facility]), Bronchitis With Bronchospasm (Wheezing) ([facility]) , Chronic Obstructive Lung Disease ([facility]), Diabetes ([facility]), High Blood Pressure ( [facility]), Inhaled Bronchodilators ([facility]), Steroid Medication Additional Instructions: use the nebulizer up to every 4 hours with plain albuterol the duoneb can be used 4 times per in addition albuterol MDI prednisone for 1 week to er if symptoms worsen Prescriptions: Albuterol Sulfate [Ventolin 0.083% Neb 2.5 mg/3 mL Ampul] 2.5 mg NEB Q3HP PRN # 25 vial PRN Reason: Albuterol Sulfate [Proair HFA Inhalation Aerosol 8.5 gm MDI] 2 puff IH Q3HP PRN #1 hfa.aer.ad PRN Reason: Guaifenesin/Codeine Phos [Guiatuss Ac Syrup] 5 ml PO Q4HP PRN #90 liquid PRN Reason: Azithromycin [Zithromax] 250 mg PO DAILY #6 tablet Ipratropium/Albuterol Sulfate [Duoneb 3 ml Ampul] 3 ml NEB RTQ6 #1 pkg Prednisone [Deltasone 10 mg Tablet] 10 mg PO ASDIR PRN #21 tablet PRN Reason: Referrals: DYLON VENCES MD [ACTIVE PROVISIONAL STAFF] - Follow up tomorrow
--- NOTE | 2017-03-01 12:48 | RADIOLOGY REPORT (SQ) ---
EXAM DESCRIPTION: CHEST PA/LAT COMPLETED DATE/TIME: 03/01/2017 12:38 pm REASON FOR STUDY: cp/sob COMPARISON: 06/29/2016 EXAM PARAMETERS: NUMBER OF VIEWS: two views TECHNIQUE: Digital Frontal and Lateral radiographic views of the chest acquired. RADIATION DOSE: NA LIMITATIONS: none FINDINGS: LUNGS AND PLEURA: Pulmonary vascular congestion. No pulmonary edema. No infiltrate or ef fusion. MEDIASTINUM AND HILAR STRUCTURES: No masses or contour abnormalities. HEART AND VASCULAR STRUCTURES: Heart size is borderline. BONES: No acute findings. HARDWARE: None in the chest. OTHER: No other significant finding. IMPRESSION: Borderline cardiomegaly with pulmonary vascular congestion but no hilary CHF. TECHNICAL DOCUMENTATION: JOB ID: [id number] [employer]- All Rights Reserved
[2017-03-01 13:05] LABS: ALANINE AMINOTRANSFERASE 34 U/L (9-52); ALBUMIN 3.9 g/dL (3.5-5.0); ALKALINE PHOSPHATASE 110 U/L (38-126); ANION GAP 12 (5-19); ASPARTATE AMINO TRANSFERASE 16 U/L (14-36); BILIRUBIN,DIRECT 0.2 mg/dL (0.0-0.4); BILIRUBIN,TOTAL 0.3 mg/dL (0.2-1.3); BLOOD UREA NITROGEN 12 mg/dL (7-20); CALCIUM 9.7 mg/dL (8.4-10.2); CARBON DIOXIDE 28 mmol/L (22-30); CHLORIDE 101 mmol/L (98-107); CREATININE RESULT 0.76 mg/dL (0.52-1.25); GLUCOSE 170 mg/dL (75-110); POTASSIUM 4.4 mmol/L (3.6-5.0); SODIUM 140.5 mmol/L (137-145); TOTAL PROTEIN 8.2 g/dL (6.3-8.2)
[2017-03-01 13:23] LABS: TROPONIN I < 0.012 ng/mL
[2017-03-01] MEDS ORDERED: HYDROCODONE/ACETAMINOPHEN 5-325 MG TABLET PO ONE ×2 (14:20→15:31)
--- NOTE | 2017-03-01 15:09 | EKG REPORT ---
SEVERITY:- NORMAL ECG - SINUS RHYTHM : Confirmed by: Yan Jacob MD 01-Mar-2017 15:08:52
[2017-03-01] MEDS ORDERED: IPRATROPIUM/ALBUTEROL 0.5-2.5 MG/3 ML AMPUL NEB ONE (15:32)
[2017-03-01 16:46] VITALS: BP 147/94
== END 2017-03-01 16:46 | disposition home or self-care (01) ==
LOC: ER 11:54
DX: J44.9 Chronic obstructive pulmonary disease, unspecified (principal); R07.1 Chest pain on breathing; E66.9 Obesity, unspecified; Z68.44 Body mass index [BMI] 60.0-69.9, adult; R06.02 Shortness of breath; R05 Cough; E11.9 Type 2 diabetes mellitus without complications; I10 Essential (primary) hypertension; R09.89 Other specified symptoms and signs involving the circulatory and respiratory systems; Z91.013 Allergy to seafood; Z87.891 Personal history of nicotine dependence
CPT/HCPCS: 93005; 94640 ×2; 99285; 36415; 85025; 80053; 84484; 85379; 83880; 71020; 93010; J7512; J7620

== ENCOUNTER 2017-03-23 13:05 | Emergency (ER) | payer OTHER ==
[2017-03-23] MEDS ORDERED: OXYCODONE-ACETAMINOPHEN 5-325 MG TABLET PO ONE (14:32)
[2017-03-23] MEDS ORDERED: METHYLPREDNISOLONE INJ 125 MG/2 ML SDV IV ONE (14:33)
[2017-03-23] MEDS ORDERED: IPRATROPIUM/ALBUTEROL 0.5-2.5 MG/3 ML AMPUL NEB ONE ×3 (14:33→23:45)
--- NOTE | 2017-03-23 14:38 | ER Document Report ---
ED Medical Screen (RME) - General Chief Complaint: Breathing Difficulty Stated Complaint: BREATHING DIFFICULTY Time Seen by Provider: 03/23/17 14:26 Notes: 37-year-old female patient COPD who did start smoking again recently. She is on home O2 at night, nebulizer treatments. CPAP. States the treatments at home were not helping. She has pain in her left lung which she thinks might be pneumonia. She does complain of aching all over her body. She was seen here on 03/01/2017, was given prescriptions for medicines for her nebulizer, Zithromax, prednisone. She states now that seem to help at all. She has not been to follow-up with her primary care provider since that visit on 03/01/2017. She does have diffuse tight wheezes, is dyspneic, is morbidly obese. She denies increased swelling to her lower extremities. Due to the overloaded emergency room and hospital and lengthy wait times to get to a main ED bed, we will initiate is much treatment as possible here in the [place] area. This will include IV magnesium, Solu-Medrol, nebulizer treatments, oxygen by nasal cannula, ABG, EKG and initiation of lab work and chest x-ray. I have greeted and performed a rapid initial assessment of this patient. A comprehensive ED assessment and evaluation of the patient, analysis of test results and completion of the medical decision making process will be conducted by additional ED providers. TRAVEL OUTSIDE OF THE [place] IN LAST 30 DAYS: No - Related Data Allergies/Adverse Reactions: iodine [Iodine] Allergy (Verified 03/23/17 13:06) Shellfish * [Shellfish] Allergy (Verified 03/23/17 13:06) Past Medical History - Social History Family history: CAD, Malignancy - breast, lung, Other - emphysema - Past Medical History Cardiac Medical History: Reports: Hx Hypercholesterolemia, Hx Hypertension Pulmonary Medical History: Reports: Hx Asthma, Hx COPD Neurological Medical History: Reports: Hx Migraine Endocrine Medical History: Reports: Hx Diabetes Mellitus Type 2 Renal/ Medical History: Denies: Hx Peritoneal Dialysis Psychiatric Medical History: Reports: Hx Bipolar Disorder - Immunizations Hx Diphtheria, Pertussis, Tetanus Vaccination: Yes Physical Exam - Vital signs Vitals: Temp Pulse Resp BP Pulse Ox 98.6 F 115 H 18 149/95 H 97 03/23/17 13:10 03/23/17 13:10 03/23/17 13:10 03/23/17 13:10 03/23/17 13:10 Course - Vital Signs Vital signs: Temp Pulse Resp BP Pulse Ox 98.6 F 115 H 18 149/95 H 97 03/23/17 13:10 03/23/17 13:10 03/23/17 13:10 03/23/17 13:10 03/23/17 13:10
[2017-03-23] MEDS ORDERED: MAGNESIUM SULFATE/D5W 1 GM/100 ML RTUPB IV SCH (14:45)
[2017-03-23 15:43] LABS: ABSOLUTE BASOPHILS # (AUTO) 0.1 10^3/uL (0.0-0.2); ABSOLUTE EOSINOPHILS # (AUTO) 0.4 10^3/uL (0.0-0.6); ABSOLUTE LYMPHOCYTES (AUTO) 3.6 10^3/uL (0.5-4.7); ABSOLUTE MONOCYTES (AUTO) 0.6 10^3/uL (0.1-1.4); ABSOLUTE NEUT (AUTO) 6.4 10^3/uL (1.7-8.2); BASOPHILS % (AUTO) 0.5 % (0-2); EOSINOPHILS % (AUTO) 3.4 % (0-6); HEMATOCRIT 38.5 % (36.0-47.0); HEMOGLOBIN 11.7 g/dL (12.0-15.5); LYMPHOCYTES % (AUTO) 32.8 % (13-45); MEAN CORPUSCULAR HEMOGLOBIN 20.5 pg (27.0-33.4); MEAN CORPUSCULAR HGB CONC 30.4 g/dL (32.0-36.0); MEAN CORPUSCULAR VOLUME 67 fl (80-97); MONOCYTES % (AUTO) 5.5 % (3-13); PLATELET COUNT 582 10^3/uL (150-450); RED BLOOD COUNT 5.72 10^6/uL (3.72-5.28); RED CELL DISTRIBUTION WIDTH 16.8 % (11.5-14.0); SEGMENTED NEUTROPHILS % (AUTO) 57.8 % (42-78); TOTAL CELLS COUNTED % (AUTO) 100 %
[2017-03-23 15:56] LABS: ALANINE AMINOTRANSFERASE 41 U/L (9-52); ALBUMIN 4.3 g/dL (3.5-5.0); ALKALINE PHOSPHATASE 114 U/L (38-126); ANION GAP 13 (5-19); ASPARTATE AMINO TRANSFERASE 33 U/L (14-36); BILIRUBIN,DIRECT 0.3 mg/dL (0.0-0.4); BILIRUBIN,TOTAL 0.7 mg/dL (0.2-1.3); BLOOD UREA NITROGEN 9 mg/dL (7-20); CALCIUM 10.4 mg/dL (8.4-10.2); CARBON DIOXIDE 26 mmol/L (22-30); CHLORIDE 102 mmol/L (98-107); CREATINE KINASE 459 U/L (30-135); GLUCOSE 157 mg/dL (75-110); POTASSIUM 4.2 mmol/L (3.6-5.0); TOTAL PROTEIN 8.3 g/dL (6.3-8.2)
[2017-03-23 18:27] LABS: ARTERIAL BLOOD BASE EXCESS -0.1 mmol/L; ARTERIAL BLOOD H2CO3 1.16 mmol/L (1.05-1.35); ARTERIAL BLOOD HCO3 24.3 mmol/L (20-26); ARTERIAL BLOOD O2 SATURATION 97.4 % (94-98); ARTERIAL BLOOD PCO2 38.7 mmHg (35-45); ARTERIAL BLOOD PH 7.42 (7.35-7.45); ARTERIAL BLOOD PO2 95.1 mmHg (80-100); ARTERIAL BLOOD TOTAL CO2 25.4 mmol/L (21-25)
--- NOTE | 2017-03-23 18:32 | EKG REPORT ---
SEVERITY:- ABNORMAL ECG - SINUS TACHYCARDIA DIFFUSE NONSPECIFIC ST-T CHANGES : Confirmed by: Yan Jacob MD 23-Mar-2017 18:31:09
[2017-03-23 18:41] LABS: ARTERIAL BLOOD FIO2 2L
[2017-03-23] MEDS: MAGNESIUM SULFATE 1 GM/D5W 100 ML IV SCH (18:49)
[2017-03-23] MEDS ORDERED: NORMAL SALINE 500 ML IV ONE (19:24)
--- NOTE | 2017-03-23 19:24 | ER Document Report ---
ED Respiratory Problem - General Mode of Arrival: Wheelchair Information source: Patient TRAVEL OUTSIDE OF THE [place] IN LAST 30 DAYS: No - HPI Patient complains to provider of: Cough, Short of breath Onset: Yesterday Context: Hx COPD At home treatment: Bronchodilators, CPAP, Oxygen Associated symptoms: Other - see notes above <BRANDIN MIX - Last Filed: 03/23/17 21:39> <DYLON CELESTE - Last Filed: 03/24/17 03:44> - General Chief Complaint: Breathing Difficulty Stated Complaint: BREATHING DIFFICULTY Time Seen by Provider: 03/23/17 14:26 Notes: 37 year old female with history of COPD and family history of blood clots presents to the ED complaining of increasing shortness of breath and cough that exacerbated yesterday but has been on going for over a month. Patient additionally complains of a severe cough that has been giving her body aches. Patient was seen in the ED on 03/01/2017 for similar symptoms after being sick for 3 weeks and was given Prednisone, antibiotics, and a cough syrup. Patient reports no relief with these medications. Patient has used home oxygen and nebulizer treatments to no relief. (BRANDIN MIX) - Related Data Allergies/Adverse Reactions: iodine [Iodine] Allergy (Verified 03/23/17 13:06) Shellfish * [Shellfish] Allergy (Verified 03/23/17 13:06) Past Medical History - General Information source: Patient - Social History Smoking Status: Current Every Day Smoker Family History: Reviewed & Not Pertinent Patient has suicidal ideation: No Patient has homicidal ideation: No - Past Medical History Cardiac Medical History: Reports: Hx Hypercholesterolemia, Hx Hypertension Pulmonary Medical History: Reports: Hx Asthma, Hx COPD Neurological Medical History: Reports: Hx Migraine Endocrine Medical History: Reports: Hx Diabetes Mellitus Type 2 Renal/ Medical History: Denies: Hx Peritoneal Dialysis Psychiatric Medical History: Reports: Hx Bipolar Disorder Surgical Hx: Negative - Immunizations Hx Diphtheria, Pertussis, Tetanus Vaccination: Yes <BRANDIN MIX - Last Filed: 03/23/17 21:39> Review of Systems - Review of Systems Constitutional: See HPI, Malaise EENT: No symptoms reported Cardiovascular: No symptoms reported Respiratory: See HPI, Cough, Short of breath Gastrointestinal: No symptoms reported Genitourinary: No symptoms reported Female Genitourinary: No symptoms reported Musculoskeletal: No symptoms reported Skin: No symptoms reported Hematologic/Lymphatic: No symptoms reported Neurological/Psychological: No symptoms reported -: Yes All other systems reviewed and negative <BRANDIN MIX - Last Filed: 03/23/17 21:39> Physical Exam - Vital signs Interpretation: Tachycardic - General General appearance: Alert In distress: Mild - HEENT Head: Normocephalic, Atraumatic Eyes: Normal Extraocular movements intact: Yes Pupils: PERRL - Respiratory Respiratory status: Respiratory distress - mild, Other - dyspneic Breath sounds: Decreased air movement - throughout, Wheezing - fine expiratory wheezing throughout - Cardiovascular Rhythm: Regular Heart sounds: Normal auscultation - Abdominal Inspection: Obese. No: Normal - Back Back: Normal - Extremities General upper extremity: Normal inspection, Normal ROM General lower extremity: Normal inspection, Normal ROM - Neurological Neuro grossly intact: Yes Cognition: Normal Orientation: AAOx4 Nila Coma Scale Eye Opening: Spontaneous [place] Coma Scale Verbal: Oriented Nila Coma Scale Motor: Obeys Commands [place] Coma Scale Total: 15 Speech: Normal - Psychological Associated symptoms: Normal affect, Normal mood - Skin Skin Temperature: Warm Skin Moisture: Dry Skin Color: Normal <BRANDIN MIX - Last Filed: 03/23/17 21:39> - Vital signs Vitals: Temp Pulse Resp BP Pulse Ox 98.6 F 115 H 18 149/95 H 97 03/23/17 13:10 03/23/17 13:10 03/23/17 13:10 03/23/17 13:10 03/23/17 13:10 Course - Laboratory Result Diagrams: 03/23/17 15:30 03/23/17 15:30 <BRANDIN MIX - Last Filed: 03/23/17 21:39> - Laboratory Result Diagrams: 03/23/17 15:30 03/23/17 15:30 - Diagnostic Test Radiology reviewed: Image reviewed, Reports reviewed <DYLON CELESTE - Last Filed: 03/24/17 03:44> - Re-evaluation Re-evalutation: 03/23/17 21:20 Patient re-evaluated and states that she still feels bad. Informed patient that she will likely be admitted, but the patient is in a hurry to leave because she has pets at home with no one to look after them. Patient is in agreement to stay for her scan. Patient reports that she is in pain. (BRANDIN MIX) 03/24/17 01:38 Patient is a 37-year-old female with a history of COPD who comes in with wheezing and difficulty breathing. Patient has been given DuoNeb, albuterol, Solu-Medrol, magnesium. Patient is improved but she is still wheezing. She is adamant that she does not want to stay in the hospital. States that she has a nebulizer at home and oxygen to use as needed. Patient has been told that it is strongly encouraged that she stay in the hospital due to her continued wheezing and my concern that she might come back and be on a ventilator. Patient states that she has pets at home and she cannot stay. She will sign out AGAINST MEDICAL ADVICE. Patient will be given an albuterol inhaler as she states that she is out of this. She will also be given a prescription for prednisone. She is to return if she is able and follow-up with her doctor this week. Understands and agrees with plan. (DYLON CELESTE) - Vital Signs Vital signs: Temp Pulse Resp BP Pulse Ox 97.8 F 109 H 17 115/95 H 97 03/24/17 01:40 03/24/17 01:40 03/24/17 01:40 03/24/17 01:40 03/23/17 23:20 - Laboratory Laboratory results interpreted by me: 03/23/17 03/23/17 03/23/17 15:30 15:30 17:48 WBC 11.0 H RBC 5.72 H Hgb 11.7 L MCV 67 L MCH 20.5 L MCHC 30.4 L RDW 16.8 H Plt Count 582 H ABG Total CO2 25.4 H Glucose 157 H Calcium 10.4 H Creatine Kinase 459 H Total Protein 8.3 H Critical Care Note - Critical Care Note Total time excluding time spent on procedures (mins): 35 - Evaluation and management of respiratory distress, multiple re-evaluations, management of wheezing, discussion of AMA. <DYLON CELESTE - Last Filed: 03/24/17 03:44> Discharge <BRANDIN MIX - Last Filed: 03/23/17 21:39> <DYLON CELESTE - Last Filed: 03/24/17 03:44> - Discharge Clinical Impression: COPD exacerbation Condition: Fair Disposition: AGAINST MEDICAL ADVICE Instructions: Chronic Obstructive Lung Disease ([facility]) Additional Instructions: You are leaving AGAINST MEDICAL ADVICE. You are welcome to return at any time if you have any further difficulty breathing. Please follow-up with your doctor as soon as possible. Please make sure you are using your nwbulizer at home and oxygen as needed. Prednisone has been sent to your pharmacy. Prescriptions: Prednisone 60 mg PO DAILY #12 tablet Scribe Attestation: 03/24/17 03:44 I personally performed the services described in the documentation, reviewed and edited the documentation which was dictated to the scribe in my presence, and it accurately records my words and actions. (DYLON CELESTE) Scribe Documentation - Scribe Written by Scribe:: Tonny Martinez, 03/23/2017 [id number] acting as scribe for :: Rahat <BRANDIN MIX - Last Filed: 03/23/17 21:39>
[2017-03-23] MEDS ORDERED: NORMAL SALINE 1000 ML 1,000 ML IV ONE (19:25)
[2017-03-23] MEDS ORDERED: KETOROLAC TROMETHAMINE INJ/PF 30 MG/1 ML SDV IV ONE (19:32)
[2017-03-23] MEDS ORDERED: DIPHENHYDRAMINE HCL 50 MG/ML VIAL IV ONE (20:29)
[2017-03-23] MEDS ORDERED: ALBUTEROL SULFATE 0.083% NEB 2.5 MG/3 ML AMPUL NEB ONE ×3 (21:12→21:13)
--- NOTE | 2017-03-23 21:16 | RADIOLOGY REPORT (SQ) ---
EXAM DESCRIPTION: CHEST PA/LAT COMPLETED DATE/TIME: 03/23/2017 3:19 pm REASON FOR STUDY: COPD, dyspnea, chest pain COMPARISON: 03/01/2017. EXAM PARAMETERS: NUMBER OF VIEWS: two views TECHNIQUE: Digital Frontal and Lateral radiographic views of the chest acquired. RADIATION DOSE: NA LIMITATIONS: none FINDINGS: LUNGS AND PLEURA: No opacities, masses or pneumothorax. No pleural effusion. MEDIASTINUM AND HILAR STRUCTURES: No masses or contour abnormalities. HEART AND VASCULAR STRUCTURES: Heart normal size. No evidence for failure. BONES: No acute findings. HARDWARE: None in the chest. OTHER: No other significant finding. IMPRESSION: NO SIGNIFICANT RADIOGRAPHIC FINDING IN THE CHEST. TECHNICAL DOCUMENTATION: JOB ID: [id number] [employer]- All Rights Reserved
[2017-03-24] MEDS ORDERED: FENTANYL CITRATE INJ/PF 100 MCG/2 ML AMPUL IV ONE (00:11)
--- NOTE | 2017-03-24 00:18 | RADIOLOGY REPORT (SQ) ---
EXAM DESCRIPTION: NM LUNG VENT/PERF SCAN COMPLETED DATE/TIME: 03/23/2017 11:24 pm REASON FOR STUDY: cough, tachy, evaluate for PE COMPARISON: Chest x-ray 03/23/2017. RADIONUCLIDE AND DOSE: 5.44 millicuries TC-99m MAA Intravenous 32.6 millicuries TC-99m DTPA Inhaled aerosol TECHNIQUE: Eight views of the lungs acquired post ventilation of DTPA aerosol. Eight matching views of the lungs acquired following injection of MAA. LIMITATIONS: None. FINDINGS: VENTILATION: Homogeneous distribution of DTPA aerosol during ventilatory phase. No signif icant areas of photopenia. PERFUSION: No wedge-shaped or segmental defects. No ventilation-perfusion mismatches. IMPRESSION: Low probability for pulmonary emboli. TECHNICAL DOCUMENTATION: JOB ID: [id number] [employer]- All Rights Reserved
[2017-03-24] MEDS: MAGNESIUM SULFATE 1 GM/D5W 100 ML IV SCH (00:19)
[2017-03-24] MEDS ORDERED: ALBUTEROL SULFATE HFA (90 MCG/PUFF) 8 GM MDI (1 MDI/ER DISP) IH ONE (01:29)
[2017-03-24 01:41] VITALS: BP 115/95
== END 2017-03-24 01:41 | disposition left against medical advice (07) ==
LOC: ER 13:05
DX: J44.1 Chronic obstructive pulmonary disease with (acute) exacerbation (principal); R06.02 Shortness of breath; R05 Cough; R52 Pain, unspecified; R53.81 Other malaise; E11.9 Type 2 diabetes mellitus without complications; F17.200 Nicotine dependence, unspecified, uncomplicated; Z82.49 Family history of ischemic heart disease and other diseases of the circulatory system; Z91.013 Allergy to seafood; Z53.29 Procedure and treatment not carried out because of patient's decision for other reasons
CPT/HCPCS: 93005; 94640 ×2; 99291; 96361; 96375; 96365; 36415; 82803; 82550; 83735; 85025; 80053; 84484; 71046; 78582; 93010; A9540; A9567; J3010; J2930; J1885; J3475; J7030; J7040; J3490; J7620 ×2; Q9969

== ENCOUNTER 2017-03-30 00:46 | Emergency (ER) | payer OTHER ==
--- NOTE | 2017-03-30 01:29 | ER Document Report ---
ED Resuscitation - General Stated Complaint: CARDIAC ARREST Time Seen by Provider: 03/30/17 00:50 Mode of Arrival: Medic Information source: Emergency Med Personnel TRAVEL OUTSIDE OF THE [place] IN LAST 30 DAYS: No - HPI Notes: 37-year-old lady with past medical history of COPD, obesity who presented today via EMS in cardiac arrest. According to EMS providers patient collapsed in front of her friends house. Patient was complaining of shortness of breath prior to collapse. Upon arrival of EMS patient was cyanotic as well as did not have any pulse. CPR was initiated and patient had Damir airway placed. Patient was transported to emergency department. Upon arrival patient has CPR in progress. In route patient received 7 rounds of epinephrine, continue CPR as well as IV fluids through intraosseous line. Upon arrival patient was immediately intubated with endotracheal tube. ACLS care was initiated with continuous CPR. Patient received additional 6 rounds of epinephrine, 2 rounds of bicarb, calcium gluconate, continues bronchodilators through ET tube, IV magnesium as well as IV fluids with no return of spontaneous circulation. ACLS care was provided for approximately 20 minutes with no return of spontaneous circulation. No cardiac activity was confirmed with bedside ultrasound and resuscitation efforts were discontinued and patient was pronounced at 1:09 AM. - Related Data Allergies/Adverse Reactions: iodine [Iodine] Allergy (Verified 03/30/17 01:55) Shellfish * [Shellfish] Allergy (Verified 03/30/17 01:55) Past Medical History - Social History Smoking Status: Unknown if Ever Smoked Family History: Reviewed & Not Pertinent - Past Medical History Cardiac Medical History: Reports: Hx Hypercholesterolemia, Hx Hypertension Pulmonary Medical History: Reports: Hx Asthma, Hx COPD Neurological Medical History: Reports: Hx Migraine Endocrine Medical History: Reports: Hx Diabetes Mellitus Type 2 Renal/ Medical History: Denies: Hx Peritoneal Dialysis Psychiatric Medical History: Reports: Hx Bipolar Disorder - Immunizations Hx Diphtheria, Pertussis, Tetanus Vaccination: Yes Review of Systems - Review of Systems -: Yes ROS unobtainable due to patient's medical condition Physical Exam - Notes Notes: Reviewed vital signs and nursing note as charted by RN. CONSTITUTIONAL: Unconscious, GCS of 3T HEAD: Normocephalic; atraumatic EYES: Pupils are fixed and dilated ENT: Damir airway in place NECK: Large neck CARD: No pulse RESP: No breathing, patient is difficult to bag with BVM through a Damir airway ABD/GI: Distended abdomen EXT: Cold, cyanotic extremities SKIN: Cool and pale NEURO: GCS of 3T Course - Re-evaluation Re-evalutation: 03/30/17 03:13 Please see history of present illness Procedures - Intubation Orotracheal Airway evaluation: Large tongue, Obese Mallampati Classification: Class 4 Intubation method: Orotracheal Blade type: Laverne Blade size: 4 Equipment used: Bougie ETT size: 7.5 ETT secured at: Teeth ETT secured at (cm): 23 Breath Sounds after Intubation: Equal End tidal CO2 confirmed: Yes Post Intubation Xray: No Intubation Complications: No complications - Ultrasound/Bedside Ultrasound/Bedside Time completed: 01:05 Notes: 03/30/17 03:12 Bedside ultrasound confirmed no cardiac activity Critical Care Note - Critical Care Note Total time excluding time spent on procedures (mins): 35 Comments: Critical Care Time: 35 minutes Critical care provider statement: Critical care time was exclusive of: Separately billable procedures and treating other patients and teaching time Critical care was time spent personally by me on the following activities: Blood draw for specimens, evaluation of patient's response to treatment, examination of patient, obtaining history from pat EMS ient or surrogate, ordering and performing treatments and interventions, pulse oximetry, re- evaluation of patient's condition and review of old charts, ACLS care I assumed direction of critical care for this patient from another provider in my specialty: no Discharge - Discharge Clinical Impression: Cardiac arrest Disposition:
[2017-03-30] MEDS ORDERED: SODIUM BICARBONATE 8.4% INJ 50 MEQ/50 ML DISP.SYRIN ONE (10:50)
[2017-03-30] MEDS ORDERED: EPINEPHRINE INJ 1 MG/10 ML DISP.SYRIN ONE (10:50)
[2017-03-30] MEDS ORDERED: MAGNESIUM SULFATE PF/INJ 40 MEQ/10 ML SDV ONE (10:50)
== END 2017-03-30 01:09 | disposition expired ==
LOC: ER 00:46
DX: I46.9 Cardiac arrest, cause unspecified (principal); J44.9 Chronic obstructive pulmonary disease, unspecified; I10 Essential (primary) hypertension; E11.9 Type 2 diabetes mellitus without complications; Z91.013 Allergy to seafood
CPT/HCPCS: 82962; 31500; J0171; J3475; J3490